=== PATIENT | male | born 1970 | race Two or more races ===

== ENCOUNTER 2023-12-28 10:30 | Outpatient (CLI) | payer OTHER ==
[~2023-12-28 10:30] MED LIST: ALENDRONATE SOD70 MG; ALLOPURINOL 300 MG; LIPITOR; LOPID 600MG; NEURONTIN600 M1; NORVASC5 MG; PEPCID; TAMS0.4C; VOLTAREN 50 MG; ZESTRIL20 MG; [UNRECOGNIZED DRUG - OTHER]
[2023-12-28 11:27] LABS: CALCIUM 9.4 mg/dL (8.5-10.1); CREATININE SERUM 1.22 mg/dL (0.70-1.30); GFR 62.38; POTASSIUM 4.66 mEq/L (3.5-5.1)
[2023-12-29] MEDS ORDERED: TYLENOL ARTHRI650 MG PO (16:07)
[2023-12-29] MEDS ORDERED: KETO10TA2 PO (16:07)
[2023-12-29] MEDS ORDERED: MIRALAX17 GM PO (16:07)
[2023-12-29] MEDS ORDERED: TRAMADOL HCL50 MG PO (16:07)
== END 2023-12-28 10:37 | disposition home or self-care (01) ==
LOC: LAB 10:30
PROVIDERS: ATTEND Surgery
DX: E87.5 Hyperkalemia (principal); N18.2 Chronic kidney disease, stage 2 (mild)